=== PATIENT | female | born 1940 | race Caucasian/White ===

== ENCOUNTER 2020-08-31 14:17 | Outpatient (REF) | payer OTHER, SELFPAY | END 2020-08-31 14:18 | disposition home or self-care (01) | LOC: NCHCN 14:17 | PROVIDERS: PCP Family Medicine; Visit Provider Family Medicine | DX: N95.2 Postmenopausal atrophic vaginitis (principal) | CPT/HCPCS: 87480; 87510; 87660 ==

== ENCOUNTER 2021-11-29 15:42 | Outpatient (REF) | payer OTHER, SELFPAY ==
[2021-11-29 18:41] LABS: Calculated LDL 143 mg/dL (<100); Cholesterol 242 mg/dL (<200); HDL Cholesterol 69 mg/dL (40-60); Triglyceride 152 mg/dL (<150)
[2021-11-29 18:59] LABS: C-Reactive Protein 0.17 mg/dL (0.0-0.3)
[2021-12-02 08:59] LABS: Cyclic Citrullinated Peptide <2.5 U/mL (<5.0)
== END 2021-11-29 15:43 | disposition home or self-care (01) ==
LOC: NCHCN 15:42
PROVIDERS: PCP Family Medicine; Visit Provider Family Medicine
DX: M79.641 Pain in right hand (principal); M79.642 Pain in left hand; Z13.220 Encounter for screening for lipoid disorders
CPT/HCPCS: 80061; 86200; 86140

== ENCOUNTER → 2021-12-06 00:58 | Outpatient (CLI) | payer OTHER, SELFPAY ==
--- NOTE | 2021-12-06 09:14 | DI.RAD_ITS ---
Exam(s) XR ARTHRITIS SERIES EXAM: XR ARTHRITIS SERIES CLINICAL HISTORY: BILAT HAND PAIN M79.643, OSTEO VS RHEUMATOID. TECHNIQUE: 2D digital imaging was performed. Two images were obtained. COMPARISON: No exams were available for comparison FINDINGS: BONES: No acute fracture is present. No bony destructive lesion is seen. No periarticular osteopenia is present. JOINTS: No dislocation present. There are marked degenerative changes of the left 1st CMC joint with joint space narrowing, subchondral sclerosis, subchondral cysts and periarticular spurring present. Moderate degenerative changes are seen at the interphalangeal joints with joint space narrowing and periarticular spurring. The findings are most marked at the DIP joint of the index finger. The meta carpophalangeal joints are well maintained in the left hand. In the right hand, there are moderately severe degenerative changes seen at the 1st CMC joint. The metacarpophalangeal joints are well main tained. Moderate degenerative changes are seen in the interphalangeal joints of the hand. The findi ngs are most marked at the DIP joint of the index finger. SOFT TISSUE: No soft tissue calcifications are present. IMPRESSION: Marked osteoarthritis of the hands. DATA REPOSITORY: RADIATION DOSE DELIVERED:
== END ==
PROVIDERS: PCP Family Medicine; Visit Provider Family Medicine
DX: M25.541 Pain in joints of right hand (principal); M25.542 Pain in joints of left hand; M18.11 Unilateral primary osteoarthritis of first carpometacarpal joint, right hand; M18.12 Unilateral primary osteoarthritis of first carpometacarpal joint, left hand; M19.041 Primary osteoarthritis, right hand; M19.042 Primary osteoarthritis, left hand
CPT/HCPCS: 73120

== ENCOUNTER 2024-12-16 12:47 | Outpatient (REF) | payer OTHER, SELFPAY ==
[2024-12-16 15:35] LABS: HCT 42.4 % (36.0-46.0); HGB 14.3 g/dL (11.2-15.7); MCH 31.6 pg (27.0-33.0); MCHC 33.7 % (32.0-36.0); MCV 94 fL (80-95); MPV 10.4 fL (8.0-11.0); Platelet Count 279 10^3/uL (130-400); RBC 4.53 10^6/uL (3.93-5.22); RDW-SD 44.6 fL; WBC 6.14 10^3/uL (4.4-10.8)
[2024-12-16 15:45] LABS: Prothrombin Time 10.1 sec (9.1-11.1)
[2024-12-16 15:58] LABS: ALT 33 U/L (14-59); AST 29 U/L (15-37); Albumin 4.2 g/dL (3.4-5.0); Alkaline Phosphatase 88 U/L (46-116); BUN 21 mg/dL (7-18); Bilirubin, Total 0.6 mg/dL (0.2-1.0); Calcium 9.5 mg/dL (8.5-10.1); Chloride 104 mmol/L (98-107); Estimated GFR 55.55 (mL/min/1.73m2); Glucose 98 mg/dL (74-106); Potassium 4.2 mmol/L (3.5-5.1); Sodium 142 mmol/L (136-145); Total Protein 7.3 g/dL (6.4-8.2)
== END 2024-12-16 12:48 | disposition home or self-care (01) ==
LOC: NCHCN 12:47
PROVIDERS: PCP Family Medicine; Visit Provider Family Medicine
DX: T14.8XXA Other injury of unspecified body region, initial encounter (principal)
CPT/HCPCS: 80053; 85027; 85610